=== PATIENT | female | born 1975 | race Asian ===

== ENCOUNTER 2017-12-14 10:35 | Inpatient (IN) | payer SELFPAY ==
[~2017-12-14] VITALS: Ht 152.4 cm; Wt 58.1 kg
[2017-12-14] VITALS (25 sets, daily range): BP systolic 30–157; BP diastolic 17–95
[2017-12-14] MEDS ORDERED: PREN-380 PO (11:04)
[2017-12-14] MEDS ORDERED: FERR325E14 PO (11:04)
[2017-12-14] MEDS ORDERED: LACTATED RINGERS 1,000 ML IV SCH (11:07)
[2017-12-14] MEDS ORDERED: CITRIC ACID/SODIUM CITRATE 30 ML UDC PO SCH (11:10)
[2017-12-14 12:01] LABS: BASOPHILS % (AUTO) 0.3 % (0.0-2.0); EOSINOPHILS % (AUTO) 0.4 % (0.0-4.0); HEMATOCRIT 36.6 % (36-48); LYMPHOCYTES # (AUTO) 1.7 K/uL (2.5-16.5); LYMPHOCYTES % (AUTO) 17.3 % (20.5-51.1); MEAN CORPUSCULAR HEMOGLOBIN 26 pg (27-31); MEAN CORPUSCULAR HGB CONC 33 g/dL (33-37); MEAN CORPUSCULAR VOLUME 79.6 fL (80-94); MONOCYTES # (AUTO) 0.9 K/uL (0.8-1.0); MONOCYTES % (AUTO) 8.8 % (1.7-9.3); NEUTROPHILS # (AUTO) 7.2 K/uL (1.8-7.7); NEUTROPHILS % (AUTO) 73.2 % (42.2-75.2); PLATELET COUNT (AUTO) 135 K/uL (140-450); RED BLOOD CELL COUNT(AUTO) 4.59 MIL/uL (4.20-5.40); WHITE BLOOD COUNT (AUTO) 9.8 K/uL (4.8-10.8)
[2017-12-14 12:12] LABS: APPEARANCE,URINE CLEAR (CLEAR); BILIRUBIN,URINE NEGATIVE (NEGATIVE); BLOOD, URINE 3+ (NEGATIVE); COLOR,URINE YELLOW (YELLOW); LEUKOCYTE ESTERASE ,URINE NEGATIVE (NEGATIVE); NITRITE, URINE NEGATIVE (NEGATIVE); PH,URINE 5.5 (5.0-9.0); UGLUCOSE NEGATIVE (NEGATIVE)
[2017-12-14 12:26] LABS: RBC,URINE 3-10 (FEW) /HPF (0-5); WBC,URINE 0-5 (RARE) /HPF (0-5)
[2017-12-14 13:02] LABS: ALBUMIN 2.4 g/dL (3.4-5.0); ANION GAP 11.7 (8-16); CARBON DIOXIDE 23.2 mmol/L (21-32); CREATININE 0.6 mg/dL (0.6-1.3); POTASSIUM 3.9 mmol/L (3.5-5.1); TOTAL BILIRUBIN 0.3 mg/dL (0.0-1.0)
[2017-12-14] MEDS ORDERED: CITRIC ACID/SODIUM CITRATE 30 ML UDC ONE (13:23)
[2017-12-14] MEDS ORDERED: MORPHINE PRES FREE 2 MG/2 ML 2 mL UD SYRINGE ONE (13:30)
[2017-12-14] MEDS ORDERED: OXYTOCIN 10 UNITS/ML VIAL ONE (13:32)
[2017-12-14] MEDS ORDERED: TRIAMCINOLONE 40 MG/ML 5ML VIAL ONE (13:33)
[2017-12-14] MEDS ORDERED: METHYLERGONOVINE 0.2 MG/ML AMP ONE (13:40)
[2017-12-14] MEDS ORDERED: OXYTOCIN 20 UNITS/LR PREMIX 1,000 ML IV ONE (13:59)
[2017-12-14] MEDS ORDERED: diphenhydrAMINE 50 MG/ML VIAL ONE (13:59)
[2017-12-14] MEDS ORDERED: ONDANSETRON 4 MG/2 ML VIAL IVP ONE (14:42)
[2017-12-14] MEDS ORDERED: ONDANSETRON 4 MG/2 ML VIAL IVP PRN (15:05)
[2017-12-14] MEDS ORDERED: NALOXONE 0.4 MG/ML VIAL IVP PRN ×2 (15:05)
[2017-12-14] MEDS ORDERED: KETOROLAC 30 MG/ML VIAL IVP PRN (15:05)
[2017-12-14] MEDS ORDERED: diphenhydrAMINE 50 MG/ML VIAL IVP PRN (15:05)
[2017-12-14] MEDS: OXYTOCIN 20 UNITS in LACTATED RINGERS 1,000 ML IV SCH ×2 (16:06→16:20)
[2017-12-14] MEDS ORDERED: HETASTARCH 6% 500 ML IV ONE (16:49)
--- NOTE | 2017-12-14 17:45 | NUR ---
TRANSFERRED IN FROM LD THIS 42 YR OLD TANZANIAN FEMALE PER BED ACCPD. BY LD. NURSES AND DR. RODRÍGUEZ CHRISTY. PT IS AWAKE, TANZANIAN SPEAKING. IV LR 1 LITER WITH 20 UNITS PITOCIN VIA LEFT HAND G 20 IV SITE. SKIN COOL TO TOUCH. COLOR PALE. LUNGS CLEAR, RESP. EASY AND REGULAR. MOVES ALL EXT .HAND GRASPS EQUAL. ASSISTED IN REPOSITIONING SELF IN BED. ABD SOFT. HYPOACTIVE BOWEL SOUNDS. FO;EY CATH INTACT AND PATENT WITH 20 ML YELLOWISH URINE. MOD. AMT OF SANGUINEOUS DRAINAGE NOTED ON THE PADS. MINIMAL SEROSANGUINEOUS VAGINAL DISCHARGE NOTED AT THIS TIME. POST OP DRESSINGS DRY AND INTACT.
--- NOTE | 2017-12-14 17:46 | NUR ---
INFORMATION AND DATA ARCHITECT ANALYST SHOWS ST HR 110/MIN. BP 80/32. 0.9 NS 1 LITER BOLUS STARTED.
--- NOTE | 2017-12-14 17:50 | NUR ---
AT BEDSIDE. UPDATED ON PT'S CONDITION BY DR. RODRÍGUEZ CHRISTY.
--- NOTE | 2017-12-14 17:55 | NUR ---
LILLI MEDELLIN RN FROM L/D PT'S FUNDUS IS FIRM.
--- NOTE | 2017-12-14 18:00 | NUR ---
RECEIVED PT FROM L&D [employer]IA [employer], REPORT OBTAINED AT BEDSIDE, PT IS AAOX4, ABLE TO FOLLOW COMMANDS, AND MAKE NEEDS KNOWN. LABORED BREATHING NOTED, CLEAR LUNG SOUNDS JB. ON O2 AT 4L VIA NC, ST ON HARP REPAIRER, DENIES CHEST PAIN, SOFT ABDOMEN WITH INCISION NOTED, S/P ONE HOUR AGO, SMALL AMOUNT OF VAGINAL BLEEDING NOTED, UNABLE TO MOVE BLE AT THIS TIME DUE TO THE ANESTHESIA NOTED, SCD'S PLACED ON BLE. SKIN IS PALE, COOL IN TOUCH. IV SITE TO LEFT HAND 20GA, RUNNING NS BOLUS, BP 80/32, HR 104, TEMP 97.6F, RR 22, O2 SAT 100%. PT DENIES PAIN, HOB ELEVATED TO 30 DEGREES, DR. CHRISTY AND AT BEDSIDE.
--- NOTE | 2017-12-14 18:11 | NUR ---
BP: 162/123, HR 132, RR 28, O2 SAT 79%, PT STARTED NON RESPONSIVE AT THIS TIME, PUT ON O2 AT 10L VIA MASK. O2 SAT 95 %AFTER.
--- NOTE | 2017-12-14 18:12 | NUR ---
PAGED DR. MALDONADO FOR INTENSIVE CONSULT, WAITING FOR CALL BACK.
[2017-12-14 18:24] LABS: BASOPHILS % (AUTO) 0.2 % (0.0-2.0); EOSINOPHILS % (AUTO) 0.2 % (0.0-4.0); LYMPHOCYTES # (AUTO) 2.6 K/uL (2.5-16.5); LYMPHOCYTES % (AUTO) 23.2 % (20.5-51.1); MEAN CORPUSCULAR HEMOGLOBIN 26 pg (27-31); MEAN CORPUSCULAR HGB CONC 31 g/dL (33-37); MEAN CORPUSCULAR VOLUME 84.3 fL (80-94); MONOCYTES # (AUTO) 0.8 K/uL (0.8-1.0); MONOCYTES % (AUTO) 7.5 % (1.7-9.3); NEUTROPHILS # (AUTO) 7.7 K/uL (1.8-7.7); NEUTROPHILS % (AUTO) 68.9 % (42.2-75.2); PLATELET COUNT (AUTO) 74 K/uL (140-450); RED BLOOD CELL COUNT(AUTO) 1.41 MIL/uL (4.20-5.40); RED CELL DISTRIBUTION WIDTH 27.9 % (11.6-13.7); WHITE BLOOD COUNT (AUTO) 11.2 K/uL (4.8-10.8)
[2017-12-14 18:31] LABS: HEMATOCRIT 11.9 % (36-48); HEMOGLOBIN 3.7 g/dL (12.0-16.0)
--- NOTE | 2017-12-14 18:42 | NUR ---
PAGED DR. MALDONADO 2ND TIME, WILL FOR CALLING BACK.
[2017-12-14] MEDS ORDERED: NACL 0.9% 1,000 ML IV ONE ×3 (18:45→19:45)
[2017-12-14] MEDS ORDERED: NACL 0.9% 1,000 ML IV SCH (18:50)
--- NOTE | 2017-12-14 19:05 | NUR ---
FIRST DOSE OF RBC STARTED, PT IS STILL NONRESPONSIVE, BP 68/32, HR 124, RR 23, O2 SAT 91%. DR. CHRISTY AT BEDSIDE.
--- NOTE | 2017-12-14 19:10 | NUR ---
RESTLESS. PULLING OUT 02 AND ELECTRODES. REORIENTED PRN. AT BEDSIDE. PURPOSES OF 02 AND CARDIAC MONITORING EXPLAINED TO PT.
--- NOTE | 2017-12-14 19:13 | NUR ---
T 95.9. PLACED ON [facility].
--- NOTE | 2017-12-14 19:15 | NUR ---
DR. GODFREY CALLED BACK, STATED HE COULD NOT MAKE TO THE HOSPITAL TO SEE THE PT, PAGED OTHER DOCTORS. PAGED DR. CISNEROS AFTER.
--- NOTE | 2017-12-14 19:18 | NUR ---
TEMP RECHECKED 96.7.
--- NOTE | 2017-12-14 19:20 | NUR ---
DR. MONTERO CALL BACK STATED HE COULD NOT COME.
[2017-12-14 19:22] LABS: BASOPHILS % (AUTO) 0.3 % (0.0-2.0); EOSINOPHILS % (AUTO) 0.2 % (0.0-4.0); LYMPHOCYTES # (AUTO) 2.8 K/uL (2.5-16.5); LYMPHOCYTES % (AUTO) 18.2 % (20.5-51.1); MEAN CORPUSCULAR HEMOGLOBIN 27 pg (27-31); MEAN CORPUSCULAR HGB CONC 30 g/dL (33-37); MONOCYTES # (AUTO) 0.8 K/uL (0.8-1.0); MONOCYTES % (AUTO) 4.9 % (1.7-9.3); NEUTROPHILS # (AUTO) 11.7 K/uL (1.8-7.7); NEUTROPHILS % (AUTO) 76.4 % (42.2-75.2); PLATELET COUNT (AUTO) 80 K/uL (140-450); RED BLOOD CELL COUNT(AUTO) 1.57 MIL/uL (4.20-5.40); RED CELL DISTRIBUTION WIDTH 25.9 % (11.6-13.7); WHITE BLOOD COUNT (AUTO) 15.4 K/uL (4.8-10.8)
--- NOTE | 2017-12-14 19:30 | NUR ---
REPORT GIVEN TO STRATEGY INTERN NURSE FOR CONTINUE OF CARE
[2017-12-14 19:44] LABS: HEMATOCRIT 13.8 % (36-48); HEMOGLOBIN 4.2 g/dL (12.0-16.0)
[2017-12-14] MEDS ORDERED: diphenhydrAMINE 50 MG/ML VIAL IVP SCH (19:45)
--- NOTE | 2017-12-14 19:45 | NUR ---
RECEIVED CRITICAL LAB VALUES. AT [address]CE[address] CALL FROM DR. GODFREY AND REPORTED LAB VALUES. RECEIVED NEW ORDERS. PER DR. GODFREY HE IS COMING IN TO SEE PT.
--- NOTE | 2017-12-14 19:45 | NUR ---
NEW IV INSERTED ON RIGHT HAND G#20 WITH GOOD BLOOD RETURN. CALLED L&D, SPOKE WITH LACIE (DAYSHIFT CUTTER DOWN) TO NOTIFY LADIES UNDERWEAR OPERATOR RN TO COME AND CHECK THE PATIENT PER PROTOCOL.
--- NOTE | 2017-12-14 19:48 | NUR ---
CALLED LAB REGARDING THE NEW LABS ORDERED. SPOKE WITH JOSH.
--- NOTE | 2017-12-14 19:50 | NUR ---
C/O SL ITCHINESS ON THE FACE. NO REDNESS NOR RASHES NOTED. BENADRYL 50 MG IVP GIVEN PER DR. CHRISTY'S ORDER.
--- NOTE | 2017-12-14 20:00 | NUR ---
PATIENT NOTED OPEN EYES, MOVING HER ARMS, ON SIMPLE MASK AT 8L/MIN SATURATING 100%. DT. ZAC CHRISTY (HOSPICE RN)AND PATIENT'S AT BEDSIDE. PATIENT CURRENTLY RECEIVING BLOOD, IV SITE ON RAC G#20, IST UNIT OF PRBC WAS COMPLETED AT 1950, 2ND UNIT PRBC STARTED AT THIS TIME. ST ON THE MONITOR, ON PITOCIN DRIP INFUSING TO LEFT HAND IV, G20. RECEIVING BOLUS NS INFUSING TO RIGHT HAND G#20. MARCANO CATHETER NOTED WITH SCANTY YELLOW URINE. DR. ZAC CHRISTY CHECKED PATIENT, HAS SMALL AMOUNT OF VAGINAL BLEEDING. PATIENT ON CRISTINA HUGGER, TEMPERATURE 96.2.
--- NOTE | 2017-12-14 20:00 | NUR ---
NO ITCHINESS NOTED AT THIS TIME.
--- NOTE | 2017-12-14 20:05 | NUR ---
CIERRA (OB RN) CAME TO CHECKED THE PATIENT. (SEE L&D NURSES NOTES)
--- NOTE | 2017-12-14 20:06 | NUR ---
CALLED RADIOLOGY DEPARTMENT AND INFORMED THEM REGARDING CURRENT ORDER. US TECH TO COME IN THE UNIT. DR. GODFREY PREPARING AT BEDSIDE.
--- NOTE | 2017-12-14 20:10 | NUR ---
DR. GODFREY AT BEDSIDE. CENTRAL LINE PLANNED TO BE INSERTED. WAITING FOR PT'S TO COME BACK TO UNIT TO SIGN CONSENT.
--- NOTE | 2017-12-14 20:11 | NUR ---
CONSENT OBTAINED FOR CENTRAL LINE INSERTION.
[2017-12-14] MEDS ORDERED: NOREPINEPHRINE 8 MG in DEXTROSE 5% 250 ML IV PRN (20:30)
[2017-12-14] MEDS ORDERED: NOREPINEPHRINE 4 MG/4 ML VIAL IV ONE (20:36)
--- NOTE | 2017-12-14 20:37 | NUR ---
[facility] CALLED DUE TO LOW BLOOD PRESSURE AND AGONAL BREATHING, DR. GODFREY WAS AT BEDSIDE. ASSISTED RESPIRATIONS VIA 100% AMBU BAG/MASK. PT. INTUBATED BY DR. MORILLO 7.0 ETT AT 22CM@TEETH. BREATH SOUNDS BILATERAL AND CLEAR AND ETCO2 POSITIVE FOR GAS EXCHANGE. PLACED ON VENTILATOR AC-16, VT-450, FIO2-100% PEEP +5. UNABLE TO OBTAIN ABG, SO VBG WAS DONE AND RESULTS GIVEN TO DR. GODFREY, INCREASED VENTILATOR RATE TO 24BPM. AT 2205 PULLED ETT BACK TO 20CM@ LIP. 2215 ABG/VBG DRAWN BY DR. GODFREY AND RESULT WERE VENOUS AND GIVEN TO DOCTOR. Addendum: 12/15/17 at 0450 by Kate Obrien RT CORRECTION DR. ORTIZ
--- NOTE | 2017-12-14 20:37 | NUR ---
PATIENT WITH BRADYCARDIA, HR 45, WITH AGONAL BREATHING,CODE BLUE CALLED. PATIENT WAS INTUBATED BY DR. ORTIZ, ED PHYSICIAN. DR. GODFREY AT BEDSIDE.
--- NOTE | 2017-12-14 20:50 | NUR ---
DR. GODFREY STILL IN THE UNIT, CLARIFIED WITH HIM IF HE WANTS ANY IV FLUIDS TO BE GIVEN AFTER THE CURRENT BOLUS RUNNING; PER DR. GODFREY, NO OTHER IV FLUIDS AT THIS TIME. GIVE THE ORDERED BLOOD FIRST.
--- NOTE | 2017-12-14 21:00 | NUR ---
DR. GODFREY ARRIVED IN THE UNIT AT 2004, INSERTED TLC ON RIGHT FEMORAL AREA AT AROUND 2029, CONSENT WAS SIGNED BY PATIENT'S SUMMER FLEMING. LEVOPHED DRIP 8 MG/250 D5W STARTED [id number] AT 30 MCG/MIN, BP 85/74.
[2017-12-14] MEDS ORDERED: SODIUM BICARBONATE 8.4% PFS 50 MEQ/50 ML SYR IVP ONE ×4 (21:20→21:50)
[2017-12-14] MEDS ORDERED: PHENYLEPHRINE 10 MG/ML VIAL ONE (21:52)
[2017-12-14] MEDS ORDERED: PHENYLEPHRINE 40 MG in NACL 0.9% 250 ML IV PRN (22:00)
[2017-12-14] MEDS ORDERED: CALCIUM CHLORIDE 10% 100 MG/ML SYR IVP SCH (22:00)
[2017-12-14] MEDS ORDERED: ALBUMIN HUMAN 25% 50 ML IV SCH (22:00)
[2017-12-14] MEDS ORDERED: CALCIUM CHLORIDE 10% 100 MG/ML SYR IVP ONE (22:00)
--- NOTE | 2017-12-14 22:00 | NUR ---
NEOSYNEPHRINE 40 MG/250 ML NS STARTED AT 150 MCG/MIN, BP 34/24.
--- NOTE | 2017-12-14 22:00 | NUR ---
PATIENT STILL HYPOTENSIVE, BP 34/24, NEOSYNEPHRINE 16 MG/250 ML NS STARTED AT 150 MCG/KG/MIN. Addendum: 12/15/17 at 0629 by Faith Marx RN NEOSYNEPHRINE 40 MG /250 ML NS AND NOT NEOSYNEPHRINE 16 MG
--- NOTE | 2017-12-14 22:00 | NUR ---
DR. LOO AT BEDSIDE TO SEE PT.
[2017-12-14] MEDS ORDERED: VASOPRESSIN 20 UNITS/ML VIAL ONE (22:16)
[2017-12-14 22:17] LABS: MEAN CORPUSCULAR HEMOGLOBIN 29 pg (27-31); MEAN CORPUSCULAR HGB CONC 31 g/dL (33-37); MEAN CORPUSCULAR VOLUME 94.2 fL (80-94); PLATELET COUNT (AUTO) 39 K/uL (140-450); RED BLOOD CELL COUNT(AUTO) 1.39 MIL/uL (4.20-5.40); RED CELL DISTRIBUTION WIDTH 18.8 % (11.6-13.7); WHITE BLOOD COUNT (AUTO) 11.1 K/uL (4.8-10.8)
--- NOTE | 2017-12-14 22:20 | NUR ---
BLOOD PRODUCTS GIVEN 2219: 2ND UNIT FFP STARTED, NO ADVERSE REACTIONS NOTED. 2109: IST UNIT FFP GIVEN AND COMPLETED AT 2214 WITH NO ADVERSE REACTIONS NOTED. 1999: 2ND UNIT PRBC GIVEN AND COMPLETED AT 2049, NO ADVERSE REACTIONS NOTED.
--- NOTE | 2017-12-14 22:27 | NUR ---
CIERRA (OB RN) CAME TO SEE AND ASSESSED THE PATIENT. (SEE L&D NURSES NOTE).
[2017-12-14] MEDS ORDERED: VASOPRESSIN 20 UNITS in NACL 0.9% 250 ML IV SCH (22:30)
[2017-12-14] MEDS ORDERED: SODIUM BICARBONATE 8.4% PFS 50 MEQ/50 ML SYR IVP SCH (22:30)
--- NOTE | 2017-12-14 22:30 | NUR ---
BP AT 2215 WAS 47/38, VASOPRESSIN STARTED AT 0.01 UNITS/MIN.
[2017-12-14 22:37] LABS: HEMATOCRIT 13.1 % (36-48); HEMOGLOBIN 4.1 g/dL (12.0-16.0)
--- NOTE | 2017-12-14 22:50 | NUR ---
DR. ZAC CHRISTY INSTRUCTED TO STOP PITOCIN DRIP AND GIVE THE 3RD UNIT PRBC.
[2017-12-14 22:51] LABS: LYMPHOCYTES % (MANUAL) 31 % (20-46); METAMYELOCYTES % 6 % (0-0); MONOCYTES % (MANUAL) 3 % (5-12)
[2017-12-14] MEDS ORDERED: HYDROCORTISONE NA SUCC 100 MG/2 ML VIAL IV SCH (23:00)
--- NOTE | 2017-12-14 23:30 | NUR ---
2308 CALLED [facility], CPR STARTED, HR 44, NO PULSE , PEA, PATIENT PRONOUNCED AT [address] ZAC CHRISTY STILL IN THE UNIT.
--- NOTE | 2017-12-14 23:50 | NUR ---
PATIENT'S JINA FLEMING AGREED FOR PATIENT'S BODY TO EMBOSSING CLERK BY WILBERT MARTÍNEZ [facility]. EXPLAINED TO THE THAT [facility] AND [facility]'S OFFICE WILL BE NOTIFIED ALSO TO REPORT ABOUT THE .
[2017-12-15] MEDS ORDERED: PIPER/TAZO 3.375GM/D5W PREMIX 50 ML IV SCH
--- NOTE | 2017-12-15 00:10 | NUR ---
CALLED [facility]YS[facility]'S OFFICE TO REPORT THE .
--- NOTE | 2017-12-15 00:15 | NUR ---
AL FROM [facility] CALLED, INFORMATIONS GIVEN, PATIENT IS A DONOR CANDIDATE, REFERRAL # [id number].
[2017-12-15 00:25] LABS: FIBRINOGEN 90 mg/dL (200-400); PROTHROMBIN TIME 23.5 secs (10.8-13.4)
[2017-12-15 00:40] LABS: ALBUMIN 0.8 g/dL (3.4-5.0); ANION GAP 28.3 (8-16); CARBON DIOXIDE 16.1 mmol/L (21-32); CREATININE 1.3 mg/dL (0.6-1.3); POTASSIUM 5.4 mmol/L (3.5-5.1); TOTAL BILIRUBIN 0.1 mg/dL (0.0-1.0)
--- NOTE | 2017-12-15 01:35 | NUR ---
DEPUTY PRASAD, [facility] OFFICE CALLED, INFORMATIONS GIVEN, PER HE WILL CALL BACK AGAIN.
--- NOTE | 2017-12-15 01:50 | NUR ---
RECEIVED CALL FROM [facility], SPOKE WITH GEORGE, INFORMED THAT PATIENT'S BODY STILL HERE IN THE UNIT, AWAITING FOR DEPUTY PRASAD/ DEPUTY MANAGER'S OFFICE TO CALL BACK AGAIN.
[2017-12-15] MEDS ORDERED: ETOMIDATE 20 MG/10 ML VIAL IVP SCH (02:30)
[2017-12-15] MEDS ORDERED: SUCCINYLCHOLINE CHLORIDE 200 MG/10 ML VIAL IVP SCH (02:30)
--- NOTE | 2017-12-15 02:30 | NUR ---
RECEIVED CALL FROM DEPUTY PRASAD, INFORMATIONS GIVEN, PER DEPUTHarika, BODY CAN NOT BE RELEASED YET, SOMEBODY WILL COME TO TAKE FINGERPRINTS. [facility] DIONICIO AVALOS.
[2017-12-15] MEDS ORDERED: HYDROCORTISONE NA SUCC 100 MG/2 ML VIAL IV SCH (05:00)
--- NOTE | 2017-12-15 07:27 | NUR ---
DEPUTY FROM [facility] OFFICE HERE TO DO FINGERPRINTING. ENDORSED TO CHRIST, ICU FULFILLMENT MAIL CLERK TO FOLLOW THROUGH.
--- NOTE | 2017-12-15 07:35 | NUR ---
PER DEPUTHarika CROWELLSTEPHANIE TO RELEASE PT. TO MORTUARY.
--- NOTE | 2017-12-15 07:40 | NUR ---
SPOKE TO DEEPAK DUBOSE FROM [facility]. FACE SHEET FAXED REQUESTED.
--- NOTE | 2017-12-15 10:15 | NUR ---
PT. TAKEN BY WILBERT HERNANDEZ.
== END 2017-12-14 23:24 | disposition expired | DRG 765 ==
LOC: MLD 10:35 → MFCC 14:10 → MIC 17:58
PROVIDERS: ADMIT Obstetrics & Gynecology; ATTEND Obstetrics & Gynecology
PROC: 30233N1 Transfusion of Nonautologous Red Blood Cells into Peripheral Vein, Percutaneous Approach (ICD-10-PCS; 2017-12-14)
PROC: 30233K1 Transfusion of Nonautologous Frozen Plasma into Peripheral Vein, Percutaneous Approach (ICD-10-PCS; 2017-12-14)
PROC: 10D00Z1 Extraction of Products of Conception, Low, Open Approach (ICD-10-PCS; 2017-12-14)
PROC: 06HY33Z Insertion of Infusion Device into Lower Vein, Percutaneous Approach (ICD-10-PCS; 2017-12-14)
PROC: 5A12012 Performance of Cardiac Output, Single, Manual (ICD-10-PCS; 2017-12-14)
PROC: 30233L1 Transfusion of Nonautologous Fresh Plasma into Peripheral Vein, Percutaneous Approach (ICD-10-PCS; principal; 2017-12-14 14:45)
DX: O34.211 Maternal care for low transverse scar from previous cesarean delivery (principal); G93.40 Encephalopathy, unspecified; J96.01 Acute respiratory failure with hypoxia; O99.355 Diseases of the nervous system complicating the puerperium; O99.12 Other diseases of the blood and blood-forming organs and certain disorders involving the immune mechanism complicating childbirth; Z37.0 Single live birth; D50.0 Iron deficiency anemia secondary to blood loss (chronic); O90.89 Other complications of the puerperium, not elsewhere classified; R57.8 Other shock; O99.53 Diseases of the respiratory system complicating the puerperium; D69.6 Thrombocytopenia, unspecified; Z3A.39 39 weeks gestation of pregnancy; O77.0 Labor and delivery complicated by meconium in amniotic fluid
CPT/HCPCS: 31500; 36415; 36430; 36600; 51702; 71045; 76700; 80053; 81001; 82803; 85025; 85379; 85384; 85610; 85730; 86592; 86886; 86900; 86901; 86920; 87081; 92950; 94002; J0690; J1200; J1720; J2210; J2270; J2370; J2405; J2543; J2590; J3301; J3490; J7030; J7060; J7120; P9016; P9017; P9046; Q0092